=== PATIENT | female | born 1965 | race Caucasian/White ===

== ENCOUNTER 2017-01-02 07:25 | Emergency (ER) | payer OTHER ==
[~2017-01-02] VITALS: Ht 165.1 cm; Wt 84.1 kg
[2017-01-02 07:38] VITALS: BP 111/73; PULSE 65; RESP 12; O2SAT 98
--- NOTE | 2017-01-02 08:22 | ED.REPORT ---
HPI-Eye Problem Date of Service Jan 02, 2017 ED Provider: Oliverio Salinas DO 51-year-old generally healthy female presents with a three-day history of general malaise with some mild fever and chills weakness. This morning she awoke with excessive discharge from the eyes. She states that she has had allergies in the past for which she takes Flonase however she has not had his level of swelling previously, and for this reason she presents to ER today. She states that over the last 3 days she has developed neck stiffness that waxes and wanes. She has a history of migraine disorder and feels like her neck "needs to pop". She has not taken allergy medication this morning. Nursing Notes Stated Complaint: POSS ALLERGIC REACTION EYES SWOLLEN Chief Complaint: Eye Allergies: Coded Allergies: Penicillins (Verified Allergy, Severe, Anaphylaxis, 08/30/15) MOTHER SAYS General Time Seen by MD: 08:15 Chief Complaint Both eyes affected, Discharge... 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 Physical Exam Initial Vital Signs Vital Signs (First) Date Time Temp Pulse Resp B/P Pulse Ox O2 Delivery O2 Flow Rate FiO2 01/02/17 07:38 36.2 65 12 111/73 98 Room Air General / Const: Well-developed, Well-nourished ENT: Mucous membranes moist, Conjunctiva normal, No scleral icterus Neck: Supple, Full range of motion Respiratory: Breath sounds normal, Clear to auscultation, No respiratory distress Cardiovascular: Regular rate & rhythm, Heart sounds normal, Intact distal pulses Abdomen / GI: Soft, Non-tender, No guarding, No rebound, No distention Extremities: No swelling Skin: Warm, Dry, No cyanosis Neurologic: Alert, Oriented, Nonfocal Psychiatric: Mood/affect normal, Behavior normal, Normal thought content Interpretation & Diagnostics Lab Results Interpretation Result Diagram: 01/02/17 0845 01/02/17 0845 Test 01/02/17 08:45 01/02/17 09:17 White Blood Count 7.2th/mm3 (3.8-10.1) Red Blood Count 4.53mil/mm3 (3.90-5.20) Hemoglobin 14.1g/dL (12.0-15.6) Hematocrit 41.9% (35.0-46.0) Mean Corpuscular Volume 92.5fL (81-100) Mean Corpuscular Hemoglobin 31.1pg (27.0-35.0) Mean Corpuscular Hemoglobin Concent 33.7% (32.0-37.0) Red Cell Distribution Width 13.0% (12.3-15.4) Platelet Count 254bil/L (150-400) Neutrophils (%) (Auto) 52.5% (40-74) Lymphocytes (%) (Auto) 39.7% (14-46) Monocytes (%) (Auto) 5.9% (4-12) Eosinophils (%) (Auto) 1.4% (0-5) Basophils (%) (Auto) 0.4% (0-3) Sodium Level 142mEq/L (134-144) Potassium Level 3.8mEq/L (3.5-5.2) Chloride Level 107mEq/L (97-108) Carbon Dioxide Level 22mmol/L (18-29) Blood Urea Nitrogen 6mg/dL (6-24) Creatinine 0.67mg/dL (0.57-1.00) Estimat Glomerular Filtration Rate 133mL/min (>59) Glucose Level 123mg/dL (60-99) Calcium Level 9.0mg/dL (8.5-10.1) Magnesium Level 2.1mg/dL (1.6-2.6) Total Bilirubin 0.5mg/dL (0.0-1.2) Aspartate Amino Transf (AST/SGOT) 29U/L (0-50) Alanine Aminotransferase (ALT/SGPT) 33U/L (0-32) Alkaline Phosphatase 63U/L (25-150) Total Protein 6.6g/dL (6.4-8.4) Albumin 3.7g/dL (3.4-5.0) Hold [place] Top Tube Received (Received) Re-Eval/Medical Decision Med Decision/Clinical Course Attending note: I saw and evaluated this patient. The patient has a history of migraines with headache today similar to other prior migraines. She reports having unknown seasonal allergies since moving to the [facility]. She does have some mild upper eyelid edema without findings of conjunctivitis or periorbital cellulitis. There are no secondary signs of allergic reaction however the clinical history of diffuse itchiness early in the morning supports the probable finding of a allergic reaction. Basic labs are reassuring and do not seem to point to severe dehydration. I personally reevaluated the patient after medication and she states she is feeling better. She feels comfortable with the discharge plan, all questions are answered. Return and follow-up precautions given. After treatment with anti-histamine medication puffiness of the patient's face is much reduced and she states she is feeling better. This appears to be an acute allergic exacerbation. She states that her head is still hurting and she thinks this is related to an oncoming migraine. This feels similar to migraines that she has had in the past. I am not concerned for serious pathology at this point as her labs are unremarkable and the patient is looking well in the room. Discharge & Departure Departure Notes It appears from your visit today they are most likely having an allergic reaction as your symptoms are mainly self-limited, and antihistamine seems to have been helpful Please take Zyrtec or Claritin for allergy relief at home as needed for symptomatic relief. Follow-up with primary care doctor within the next 1-2 weeks if possible Please return to the emergency department in the event that you are short of breath, wheezing, headache becomes significantly worse or atypical from what you typically experience with migraine Primary Impression: Allergic reaction Encounter type: initial encounter Qualified Code: T78.40XA - Allergy, unspecified, initial encounter Disposition: Home Discharge Condition All VS Reviewed: Yes Condition: Stable Additional Instructions: It appears from your visit today they are most likely having an allergic reaction as your symptoms are mainly self-limited, and antihistamine seems to have been helpful Please take Zyrtec or Claritin for allergy relief at home as needed for symptomatic relief. Follow-up with primary care doctor within the next 1-2 weeks if possible Please return to the emergency department in the event that you are short of breath, wheezing, headache becomes significantly worse or atypical from what you typically experience with migraine Referrals: Jhonny Beck DO (PCP) Attending Statement The patient was seen and examined together with Dr. Rai on 01/02/17 and I have added additional information to the note above. Jose Angel Lam DO Jan 02, 2017 08:22 Oliverio Salinas DO Jan 02, 2017 13:38
[2017-01-02] MEDS ORDERED: diphenhydrAMINE 25 mg Capsule PO ONE (08:35)
[2017-01-02 08:51] LABS: BASOPHILS % (AUTO) 0.4 % (0-3); EOSINOPHILS % (AUTO) 1.4 % (0-5); MONOCYTES % (AUTO) 5.9 % (4-12); Mean Corpuscular Hemoglobin 31.1 pg (27.0-35.0); Mean Corpuscular Volume 92.5 fL (81-100); NEUTROPHILS % (AUTO) 52.5 % (40-74); Platelet Count 254 bil/L (150-400)
[2017-01-02 09:18] LABS: Magnesium 2.1 mg/dL (1.6-2.6)
[2017-01-02 10:17] VITALS: BP 127/76; PULSE 50; RESP 10; O2SAT 97
[2017-01-02 10:18] VITALS: BP 119/72; PULSE 54; RESP 11; O2SAT 96
[2017-01-02 10:19] VITALS: BP 113/77; PULSE 59; RESP 13; O2SAT 96
[2017-01-02 10:27] VITALS: BP 117/86; PULSE 59; RESP 15; O2SAT 97
== END 2017-01-02 10:29 | disposition home or self-care (01) ==
LOC: SED 07:25
DX: T78.40XA Allergy, unspecified, initial encounter (principal); Y93.89 Activity, other specified; Y92.89 Other specified places as the place of occurrence of the external cause; Y99.8 Other external cause status; R50.9 Fever, unspecified; R53.1 Weakness; H57.8 Other specified disorders of eye and adnexa; M43.6 Torticollis; G43.909 Migraine, unspecified, not intractable, without status migrainosus; F17.200 Nicotine dependence, unspecified, uncomplicated; Z88.0 Allergy status to penicillin